=== PATIENT | male | born 1990 | race Caucasian/White ===

== ENCOUNTER 2018-11-08 10:51 | Day surgery (SDC) | payer BC ==
[~2018-11-08 10:51] MED LIST: CEFAZOLIN 2 GM/50 ML (PMX) 50 ML IVPB
[2018-11-08] MEDS ORDERED: MIDAZOLAM 1 MG/ML 2 ML INJ (12:12)
[2018-11-08] MEDS ORDERED: FENTAnyl 50 MCG/ML VIAL (12:12)
[2018-11-08] MEDS ORDERED: PROPOFOL 40 ML (12:12)
[2018-11-08] MEDS ORDERED: FAMOTIDINE 20 MG INJ (12:13)
[2018-11-08] MEDS ORDERED: ONDANSETRON 4 MG INJ (12:16)
[2018-11-08] MEDS ORDERED: ROCURONIUM 50 MG INJ (12:17)
[2018-11-08] MEDS: SOD CHLORIDE 0.9% 1,000 ML IV (12:25)
[2018-11-08] MEDS: ACETAMINOPHEN 500 MG TAB PO (12:47)
[2018-11-08] MEDS ORDERED: ALBUTEROL 0.083% (NEB) 2.5 MG/3 ML AMP HHN (13:30)
[2018-11-08] MEDS ORDERED: FENTAnyl 50 MCG/ML VIAL IV ×2 (13:30)
[2018-11-08] MEDS ORDERED: HYDROmorphONE 1 MG/5 ML IV SYRINGE IV ×3 (13:30)
[2018-11-08] MEDS ORDERED: OXYCODONE/ACETAMINOPHEN (5/325) TAB PO ×2 (13:30)
[2018-11-08] MEDS ORDERED: LABETALOL HCL 20MG INJ IV (13:30)
[2018-11-08] MEDS ORDERED: DIPHENHYDRAMINE 50 MG INJ IV (13:30)
[2018-11-08] MEDS ORDERED: morphine (1 MG/ML) 10ML SYRINGE IV ×2 (13:30)
[2018-11-08] MEDS ORDERED: MEPERIDINE 25 MG INJ IV (13:30)
[2018-11-08] MEDS ORDERED: ONDANSETRON 4 MG INJ IV (13:30)
[2018-11-08] MEDS ORDERED: LIDOCAINE 1%/EPI (1:100,000) (MDV) 20 ML (13:32)
[2018-11-08] MEDS ORDERED: BUPIVACAINE 0.5% (SDV) 30 ML INJ (13:33)
[2018-11-08] MEDS: LIDOCAINE 1%/EPI (1:100,000) (MDV) 20 ML (13:39)
[2018-11-08] MEDS: BUPIVACAINE 0.5% (SDV) 30 ML INJ (13:39)
== END 2018-11-08 15:50 | disposition home or self-care (01) ==
LOC: SDS 10:51
DX: L05.91 Pilonidal cyst without abscess (principal)
CPT/HCPCS: 11772; 88304